=== PATIENT | male | born 1950 | race African-American/Black ===

== ENCOUNTER 2018-09-15 08:23 | Day surgery (SDC) | payer OTHER ==
[~2018-09-15] VITALS: Ht 162.6 cm; Wt 63.5 kg
[2018-09-15 09:09] VITALS: BP 158/90
[2018-09-15 15:01] VITALS: BP 160/94
== END 2018-09-15 12:15 | disposition home or self-care (01) ==
LOC: GI 08:23 → OR 11:30 → GI 12:15
PROVIDERS: Internal Medicine
PROC: 0DBG8ZZ Excision of Left Large Intestine, Via Natural or Artificial Opening Endoscopic (ICD-10-PCS; principal; 2018-09-15 11:30)
DX: Z12.11 Encounter for screening for malignant neoplasm of colon (principal); D12.4 Benign neoplasm of descending colon; I10 Essential (primary) hypertension; Z68.24 Body mass index [BMI] 24.0-24.9, adult; Z85.46 Personal history of malignant neoplasm of prostate; Z72.0 Tobacco use
CPT/HCPCS: 45378; J1610; J2250; J2310; J3010; J3490